=== PATIENT | female | born 1980 | race Asian ===

== ENCOUNTER 2018-03-28 20:14 | Emergency (ER) | payer OTHER ==
[~2018-03-28] VITALS: Ht 157.5 cm; Wt 78.9 kg
[2018-03-28 20:22] VITALS: Ht 157.5 cm; Wt 78.9 kg
[2018-03-28 22:04] VITALS: BP 142/100
== END 2018-03-28 22:04 | disposition home or self-care (01) ==
LOC: ED 20:14
DX: L50.9 Urticaria, unspecified (principal)
CPT/HCPCS: J1200; J2930

== ENCOUNTER 2018-03-29 21:07 | Emergency (ER) | payer OTHER ==
[~2018-03-29] VITALS: Ht 157.5 cm; Wt 78.0 kg
[2018-03-29 23:11] VITALS: Ht 157.5 cm; Wt 78.0 kg
[2018-03-30 01:59] VITALS: BP 132/87
== END 2018-03-30 01:59 | disposition home or self-care (01) ==
LOC: ED 21:07
DX: L50.9 Urticaria, unspecified (principal)
CPT/HCPCS: J1200; J2405; J7512

== ENCOUNTER 2018-03-30 15:33 | Inpatient (IN) | payer OTHER ==
[~2018-03-30] VITALS: Ht 160 cm; Wt 79.8 kg
[2018-03-30 15:35] VITALS: Ht 160 cm; Wt 79.8 kg
[2018-03-30 16:45] LABS: PLATELET COUNT 484 x10^3mcL (130-400); RED CELL DISTRIBUTION WIDTH 14.7 % (11.5-14.5)
[2018-03-30 16:55] LABS: CARBON DIOXIDE 23.8 mmol/L (21-32); CHLORIDE SERUM 102 mmol/L (98-107); CREATININE SERUM 0.9 mg/dL (0.6-1.0); GFR1 > 60 mL/min; GLUCOSE SERUM 127 mg/dL (74-106); POTASSIUM SERUM 3.8 mmol/L (3.5-5.1); SODIUM SERUM 137 mmol/L (136-145)
[2018-03-30 17:01] LABS: BAND NEUTROPHIL 0 % (0-10); BASOPHIL 0 % (0-2); MONOCYTE 2 % (0-7); SEGMENTED NEUTROPHILS 88 % (37-75)
[2018-03-30 17:03] LABS: rbc morphology (normal/abnorm) ABNORMAL (NORMAL)
[2018-03-30 17:08] LABS: ALBUMIN 3.5 g/dL (3.4-5.0); ALKALINE PHOSPHATASE 68 U/L (46-116); ALT/SGPT 27 U/L (14-59); AST/SGOT 30 U/L (15-37); BILIRUBIN TOTAL 0.3 mg/dL (0.20-1.00); FREE T4 0.89 ng/dL (0.76-1.46)
[2018-03-30 17:10] LABS: UA SPECIFIC GRAVITY >=1.030 (1.005-1.035); microscopic required? YES; urine erythrocyte 3+ (NEGATIVE)
[2018-03-30 21:04] VITALS: BP 137/64
[2018-03-30 21:15] LABS: CHOLESTEROL/HDL RATIO 3.8; MAGNESIUM 2.6 mg/dL (1.8-2.4); PHOSPHOROUS 2.5 mg/dL (2.5-4.9)
[2018-03-30 21:19] LABS: AMPHETAMINE QUAL UR NONE DETECTED (See below)
[2018-03-31 06:02] VITALS: BP 114/61
[2018-03-31 07:04] LABS: BASOPHIL % 0.2 % (0-2); PLATELET COUNT 367 x10^3mcL (130-400); RED CELL DISTRIBUTION WIDTH 14.5 % (11.5-14.5)
[2018-03-31 07:18] LABS: CALCIUM 7.6 mg/dL (8.5-10.1); CARBON DIOXIDE 23.1 mmol/L (21-32); CHLORIDE SERUM 107 mmol/L (98-107); CREATININE SERUM 0.6 mg/dL (0.6-1.0); GFR1 > 60 mL/min; GLUCOSE SERUM 150 mg/dL (74-106); MAGNESIUM 2.5 mg/dL (1.8-2.4); PHOSPHOROUS 1.8 mg/dL (2.5-4.9); SODIUM SERUM 141 mmol/L (136-145)
[2018-03-31 08:51] VITALS: BP 115/72
[2018-03-31 12:00] LABS: TOTAL IRON BINDING CAPACITY 266 ug/dL (250-450)
[2018-03-31 12:01] LABS: IRON 34 ug/dL (50-170)
[2018-03-31 13:22] LABS: RED BLOOD CELLS 4.68 M/mm3 (4.10-5.10)
[2018-03-31 15:13] LABS: UA SPECIFIC GRAVITY >=1.030 (1.005-1.035); microscopic required? YES; urine erythrocyte 3+ (NEGATIVE)
[2018-03-31 17:14] VITALS: BP 143/81
[2018-03-31 20:46] VITALS: BP 126/75
[2018-04-01 05:37] VITALS: BP 113/63
[2018-04-01 06:58] LABS: BASOPHIL % 0.3 % (0-2); PLATELET COUNT 346 x10^3mcL (130-400)
[2018-04-01 07:10] LABS: CALCIUM 7.5 mg/dL (8.5-10.1); CARBON DIOXIDE 24.2 mmol/L (21-32); CHLORIDE SERUM 109 mmol/L (98-107); CREATININE SERUM 0.6 mg/dL (0.6-1.0); GFR1 > 60 mL/min; GLUCOSE SERUM 122 mg/dL (74-106); MAGNESIUM 2.4 mg/dL (1.8-2.4); PHOSPHOROUS 2.6 mg/dL (2.5-4.9); POTASSIUM SERUM 4.1 mmol/L (3.5-5.1); SODIUM SERUM 143 mmol/L (136-145)
[2018-04-01 07:25] LABS: RED CELL DISTRIBUTION WIDTH 14.8 % (11.5-14.5)
[2018-04-01 10:05] VITALS: BP 130/92
[2018-04-01 14:19] VITALS: BP 130/92
[2018-04-01] MEDS ORDERED: MEDROL DOSEPAK4 MG PO (14:42)
[2018-04-01] MEDS ORDERED: BENADRYL ALLERG25 M1 PO (14:43)
[2018-04-01] MEDS ORDERED: PEPCID20 MG PO (14:43)
== END 2018-04-01 16:12 | disposition home or self-care (01) | DRG 811 ==
LOC: ED 15:33 → MU 19:45
PROVIDERS: Emergency Medicine; Family Medicine; Internal Medicine
DX: T78.2XXA Anaphylactic shock, unspecified, initial encounter (principal); N17.0 Acute kidney failure with tubular necrosis; T78.3XXA Angioneurotic edema, initial encounter; R80.9 Proteinuria, unspecified; F32.9 Major depressive disorder, single episode, unspecified; D75.1 Secondary polycythemia; R31.9 Hematuria, unspecified
CPT/HCPCS: 82785; 83880; 84439; J0171; J1200; J2920; J2930; J3490; J7030; Q0092

== ENCOUNTER 2020-04-07 20:58 | Emergency (ER) | payer OTHER ==
[~2020-04-07] VITALS: Ht 157.5 cm; Wt 86.2 kg
[~2020-04-07 20:58] MED LIST: BENADRYL ALLERG25 M1 PO; MEDROL DOSEPAK4 MG PO; PEPCID20 MG PO
[2020-04-07 21:15] VITALS: Ht 157.5 cm; Wt 86.2 kg
[2020-04-07 22:30] VITALS: BP 140/88
== END 2020-04-07 22:30 | disposition home or self-care (01) ==
LOC: ED 20:58
DX: N61.0 Mastitis without abscess (principal); I10 Essential (primary) hypertension